=== PATIENT | male | born 1995 | race African-American/Black ===

== ENCOUNTER 2017-06-24 10:26 | Emergency (ER) | payer OTHER ==
[~2017-06-24] VITALS: Ht 165.1 cm; Wt 62.0 kg
[2017-06-24 10:28] VITALS: Ht 165.1 cm; Wt 62.0 kg
--- NOTE | 2017-06-24 11:45 | RADRPT ---
PROCEDURE: Chest Radiograph. CLINICAL INDICATION: Chest pain TECHNIQUE: Single frontal chest radiograph. COMPARISON: None available FINDINGS: The cardiomediastinal silhouette is within normal limits. No infiltrate or effusion is seen. Th e bones are intact. IMPRESSION: 1. Unremarkable chest radiograph. RPTAT: KK .Severo Joel MD, MD Date Time Electronically viewed and signed by .Severo Joel MD, on 06/24/2017 11:45 .B/
[2017-06-24] MEDS ORDERED: IBUP400T22 PO (11:53)
--- NOTE | 2017-06-24 12:03 | ERD ---
ER Documentation Chief Complaint Date/Time DATE: 06/24/17 TIME: 11:59 Chief Complaint abdominal pain worse x 1 week and chest wall pain x 3 days HPI This is a 21-year-old male presenting to emergency department with chest wall pain over the past 1 year. Patient states in the last week pain has gotten worse. Patient states that certain positions make pain worse. Currently patient states pain is very minimal and rates pain 1/10. Denies chest pressure or heart palpitations. No shortness breath or difficulty breathing. No fevers or chills. No cough. Patient also reports generalized abdominal pain that comes and goes. No relieving or aggravating factors. No dysuria, hematuria, urinary frequency or urgency. Patient has not been seen by primary care provider for this. ROS All systems reviewed and are negative except as per history of present illness. Medications Home Meds Active Scripts Ibuprofen* (Motrin*) 400 Mg Tab, 400 MG PO Q6, #15 TAB Prov:KENNANALI Holloway NP 06/24/17 Allergies Allergies: Coded Allergies: No Known Allergy (Unverified , 06/24/17) PMhx/Soc Medical and Surgical Hx: pt denies Medical Hx, pt denies Surgical Hx Hx Alcohol Use: Yes Hx Substance Use: No Hx Tobacco Use: No Smoking Status: Never smoker Physical Exam Vitals Vital Signs Date Time Temp Pulse Resp B/P Pulse Ox O2 Delivery O2 Flow Rate FiO2 06/24/17 10:28 97.1 78 18 144/80 99 Physical Exam Const: No acute distress, alert, oriented to person place and time. Head: Atraumatic Eyes: Normal Conjunctiva ENT: Normal External Ears, Nose and Mouth. Neck: Full range of motion..~ No meningismus. Resp: Clear to auscultation bilaterally. No wheezing, rhonchi or crackles. Cardio: Regular rate and rhythm, no murmurs Abd: Soft, non tender, non distended. Normal bowel sounds Skin: No petechiae or rashes Back: No midline or flank tenderness Ext: No cyanosis, or edema Neur: Awake and alert Psych: Normal Mood and Affect Procedures/[address] [address] Radiology Main Line: [phone] DIAGNOSTIC IMAGING REPORT Patient: RUBEN RED : 1995 Age: 21 Sex: M MR #: [id number] [facility] #: [id number] DOS: 06/24/17 1111 Ordering MD: ANALI HAWK NP Location: [facility] Room/Bed: PROCEDURE: Chest Radiograph. CLINICAL INDICATION: Chest pain TECHNIQUE: Single frontal chest radiograph. COMPARISON: None available FINDINGS: The cardiomediastinal silhouette is within normal limits. No infiltrate or effusion is seen. The bones are intact. IMPRESSION: 1. Unremarkable chest radiograph. EKG: As interpreted by myself and Dr. Sácnhez Rate/Rhythm: Normal Sinus Rhythm QRS, ST, T-waves: No changes consistent w/ acute ischemia Impression: No evidence of ischemia or arrhythmia MDM: This is a 21-year-old male presenting to the emergency department with chest wall pain and abdominal pain. Patient states he has had intermittent chest wall pain for the past year but it has gotten worse over the last 1 week. Patient states with certain positions pain is worse such as from going to lying position to sitting up. No chest tightness or chest pressure. No heart palpitations. Patient also reports intermittent abdominal pain. Currently denies chest wall pain or abdominal pain. Vital signs are stable. EKG shows normal sinus rhythm with heart rate 60 bpm as interpreted by myself and Dr. Sánchez. Chest x-ray reviewed by radiologist is unremarkable. Differential diagnosis includes but not limited to pneumonia, bronchitis, pleurisy, costochondritis, gastroesophageal reflux,musculoskeletal chest pain and esophageal spasm. Low suspicion for acute coronary syndrome, pulmonary embolism, pneumothorax, aortic dissection and myocardial infarction. Patient is appropriate for outpatient management and will be discharged as stable. Patient will be given prescription for ibuprofen. Instructed patient to follow up with primary care provider in the next 24-48 hours. Return to ED for worsening pain, abdominal pain, vomiting, diarrhea, high fever or any new or worsening symptoms. Patient verbalizes understanding. All questions answered at discharge. Departure Diagnosis: Primary Impression: Chest wall pain Condition: Stable Patient Instructions: Chest Wall Pain, Costochondritis, Chest Wall Strain Referrals: [facility] YOU HAVE RECEIVED A MEDICAL SCREENING EXAM AND THE RESULTS INDICATE THAT YOU DO NOT HAVE A CONDITION THAT REQUIRES URGENT TREATMENT IN THE EMERGENCY DEPARTMENT. FURTHER EVALUATION AND TREATMENT OF YOUR CONDITION CAN WAIT UNTIL YOU ARE SEEN IN YOUR DOCTORS OFFICE WITHIN THE NEXT 1-2 DAYS. IT IS YOUR RESPONSIBILITY TO MAKE AN APPOINTMENT FOR FOLOW-UP CARE. IF YOU HAVE A PRIMARY DOCTOR --you should call your primary doctor and schedule an appointment IF YOU DO NOT HAVE A PRIMARY DOCTOR YOU CAN CALL OUR PHYSICIAN REFERRAL HOTLINE AT IF YOU CAN NOT AFFORD TO SEE A PHYSICIAN YOU CAN CHOSE FROM THE FOLLOWING [facility] [address] [facility] [address] [facility] [address] [facility] [address] [facility] [address] [facility]. [facility] [address] [facility]. [facility] YOU HAVE RECEIVED A MEDICAL SCREENING EXAM AND THE RESULTS INDICATE THAT YOU DO NOT HAVE A CONDITION THAT REQUIRES URGENT TREATMENT IN THE EMERGENCY DEPARTMENT. FURTHER EVALUATION AND TREATMENT OF YOUR CONDITION CAN WAIT UNTIL YOU ARE SEEN IN YOUR DOCTORS OFFICE WITHIN THE NEXT 1-2 DAYS. IT IS YOUR RESPONSIBILITY TO MAKE AN APPOINTMENT FOR FOLOW-UP CARE. IF YOU HAVE A PRIMARY DOCTOR --you should call your primary doctor and schedule and appointment IF YOU DO NOT HAVE A PRIMARY DOCTOR YOU CAN CALL OUR PHYSICIAN REFERRAL HOTLINE AT . IF YOU CAN NOT AFFORD TO SEE A PHYSICIAN YOU CAN CHOSE FROM THE FOLLOWING [facility]: [facility] [address] [place] [address] [facility] [address] [place] [address] [facility] [address] [place] [address] Additional Instructions: Call your primary care doctor TOMORROW for an appointment during the next 2-3 days.See the doctor sooner or return here if your condition worsens before your appointment time. Return to ED for any high fever, chest pain, difficulty breathing, shortness breath, wheezing, vomiting, diarrhea, abdominal pain or any new or worsening symptoms. ANALI HAWK NP Jun 24, 2017 12:03
== END 2017-06-24 12:08 | disposition home or self-care (01) ==
LOC: FTE 10:26
DX: R07.89 Other chest pain (principal)
CPT/HCPCS: 71010; 93005; Z7502